=== PATIENT | female | born 1975 | race Caucasian/White ===

== ENCOUNTER 2017-01-26 20:43 | Emergency (ER) | payer BC, SELFPAY ==
[2017-01-26] MEDS ORDERED: HYDROcodone/Acetaminophen 10/325 mg Tablet ONE (21:13)
[2017-01-26] MEDS ORDERED: Naproxen 500 MG TAB ONE (21:13)
[2017-01-26] MEDS ORDERED: AMOXicillin 250 MG CAP ONE (21:13)
== END 2017-01-26 21:18 | disposition home or self-care (01) ==
LOC: MADERS 20:43
DX: K04.7 Periapical abscess without sinus (principal); J45.909 Unspecified asthma, uncomplicated; F17.210 Nicotine dependence, cigarettes, uncomplicated
CPT/HCPCS: 99282

== ENCOUNTER 2017-08-01 18:41 | Emergency (ER) | payer SELFPAY ==
[~2017-08-01 18:41] MED LIST: Sodium Chloride 0.9% 1,000 ML BAG ONE
[2017-08-01 19:14] LABS: Pregnancy Test - Urine (BHCG) Negative (Negative); Pregu Control Background? CLEAR/WHITE (CLR/WHITE); Pregu Control Bar Appear? YES (CONTROL BAR)
[2017-08-01 19:15] LABS: Bilirubin Small (Negative); Blood, Urine Negative (Negative); Clarity Hazy (Clear); Glucose, Urine (Dipstick) Negative (Negative); Leukocyte Small (Negative); Nitrite Negative (Negative); Protein, Urine (Dipstick) Trace mg/dL (Neg-Trace); Urobilinogen 0.2 mg/dL (0.2-1.0); pH, Urine 5.5 (5.0-9.0)
[2017-08-01 19:17] LABS: RBC/HPF 0-3 HPF (0-3)
[2017-08-01 19:18] LABS: Bacteria/HPF 1+ HPF (None Seen)
[2017-08-01] MEDS ORDERED: Ketorolac Tromethamine 30 MG/ML VIAL ONE (19:25)
[2017-08-01] MEDS ORDERED: Ondansetron HCl/PF 4 MG/2 ML Vial ONE (19:25)
[2017-08-01 19:45] LABS: #Basophils 0.1 thou/uL (0.0-0.2); #Eosinphils 0.2 thou/uL (0.0-0.7); #Lymphocytes 1.5 thou/uL (1.20-3.40); #Monocytes 0.7 thou/uL (0.11-0.59); #Neutrophils 7.9 thou/uL (1.40-6.50); %Eosinophils 1.7 % (0.0-10.0); %Monocytes 6.3 % (0.0-10.0); %Neutrophils 76.9 % (42.0-75.0); Hemoglobin 11.8 g/dL (12.0-16.0); Mean Corpuscular HGB CONC 31.5 g/dL (32.0-36.0); Mean Corpuscular Hemoglobin 26.3 pg (27.0-31.0); Mean Corpuscular Volume 83.5 fl (81.0-99.0); Mean Platelet Volume 9.9 fL (7.4-10.4); Platelet Count 230 thou/uL (130-400); RBC Distribution Width 15.3 % (11.5-14.5); Red Blood Cell (RBC) Count 4.49 mill/uL (4.20-5.40); White Blood Cell (WBC) Count 10.3 thou/uL (4.8-10.8)
[2017-08-01 20:15] LABS: ALT (SGPT) 13 U/L (8-55); AST (SGOT) 17 U/L (5-34); Albumin 3.9 g/dL (3.5-5.0); Alkaline Phosphatase 74 U/L (40-150); Anion Gap 11 mmol/L (10-20); BUN (Urea Nitrogen) 12 mg/dL (7.0-18.7); Bilirubin, Total Less than 0.3 mg/dL (0.2-1.2); Calc. Creatinine Clearance 0 mL/min (70-130); Calcium 8.8 mg/dL (7.8-10.44); Carbon Dioxide 28 mmol/L (22-29); Chloride 100 mmol/L (98-107); Estimated GFR-MDRD 79; Globulin 3.5 g/dL (2.4-3.5); Glucose 86 mg/dL (70-105); Potassium 4.2 mmol/L (3.5-5.1); Protein, Total 7.4 g/dL (6.0-8.3); Sodium 135 mmol/L (136-145)
[2017-08-01] MEDS ORDERED: Sulfameth/Trimethoprim DS 800-160mg TAB ONE (20:28)
[2017-08-01] MEDS ORDERED: Phenazopyridine HCl 97.5 MG TABLET ONE (20:28)
== END 2017-08-01 21:59 | disposition home or self-care (01) ==
LOC: MADERS 18:41
DX: N39.0 Urinary tract infection, site not specified (principal); J45.909 Unspecified asthma, uncomplicated; F17.210 Nicotine dependence, cigarettes, uncomplicated
CPT/HCPCS: 80053; 81001; 81025; 85025; 87040; 87086; 96361; 96374; 96375; 96376; J1885; J2270; J2405; J7050

== ENCOUNTER 2018-07-03 09:53 | Emergency (ER) | payer SELFPAY ==
[2018-07-03 10:50] LABS: Bilirubin Negative (Negative); Blood, Urine Large (Negative); Glucose, Urine (Dipstick) Negative (Negative); Leukocyte Small (Negative); Nitrite Negative (Negative); Protein, Urine (Dipstick) 100 mg/dL (Neg-Trace); Urobilinogen 0.2 mg/dL (0.2-1.0); pH, Urine 7.5 (5.0-9.0)
[2018-07-03 11:03] LABS: Clarity Hazy (Clear); RBC/HPF GREATER THAN 50-TNTC HPF (0-3)
[2018-07-03 11:04] LABS: Bacteria/HPF Rare-Few HPF (None Seen)
[2018-07-03 11:07] LABS: Pregnancy Test - Urine (BHCG) Negative (Negative); Pregu Control Background? CLEAR/WHITE (CLR/WHITE); Pregu Control Bar Appear? YES (CONTROL BAR)
[2018-07-03] MEDS ORDERED: cefTRIAXone\\ROCEPHIN 250 MG VIAL ONE (11:43)
[2018-07-03] MEDS ORDERED: metroNIDAZOLE 250 MG TAB ONE (11:43)
[2018-07-03] MEDS ORDERED: Lidocaine 1% 20 ML MDV ONE (11:43)
[2018-07-03] MEDS ORDERED: Azithromycin 250 MG TAB ONE (11:43)
[2018-07-03 11:48] LABS: Wet Prep Clue Cells Clue Cells Absent (None Seen); Wet Prep Pathologist Review Spermatozoa Absent (None Seen); Wet Prep Spermatozoa 2nd Revie Agree with result (None Seen); Wet Prep Trichomonas Trichomonas Absent (None Seen)
[2018-07-04 22:22] LABS: Chlamydia by PCR DETECTED (NotDetected); GC by PCR Not Detected (NotDetected)
== END 2018-07-03 12:00 | disposition home or self-care (01) ==
LOC: MADERS 09:53
DX: Z20.2 Contact with and (suspected) exposure to infections with a predominantly sexual mode of transmission (principal); J45.909 Unspecified asthma, uncomplicated; F17.210 Nicotine dependence, cigarettes, uncomplicated
CPT/HCPCS: 81003; 81015; 81025; 87210; 87480; 87491; 87510; 87591; 87660; 96372; J0696; J2001

== ENCOUNTER 2020-12-25 15:51 | Emergency (ER) | payer SELFPAY ==
[2020-12-25 16:21] LABS: Bilirubin Negative (Negative); Blood, Urine Negative (Negative); Clarity Cloudy (Clear); Glucose, Urine (Dipstick) Negative (Negative); Ketone, Urine 15 mg/dL (Negative); Leukocyte Large (Negative); Nitrite Negative (Negative); Protein, Urine (Dipstick) Negative (Neg-Trace); Specific Gravity, Urine 1.025 (1.005-1.030)
[2020-12-25 16:22] LABS: Pregnancy Test - Urine (BHCG) Negative (Negative); Pregu Control Background? CLEAR/WHITE (CLR/WHITE); Pregu Control Bar Appear? YES (CONTROL BAR); Specific Gravity 1.025 (1.002-1.036)
[2020-12-25 16:28] LABS: Bacteria/HPF Rare-Few HPF (None Seen); Mucous/LPF 1+ LPF (<2+); RBC/HPF 0-3 HPF (0-3); WBC/HPF Greater Than 50 HPF (0-3)
[2020-12-25] MEDS ORDERED: Sodium Chloride 0.9% 100 ML ONE (16:43)
[2020-12-25] MEDS ORDERED: Sodium Chloride 0.9% 1,000 ML ONE (16:43)
[2020-12-25] MEDS ORDERED: Prochlorperazine 10 MG/2 ML VIAL ONE (16:43)
[2020-12-25] MEDS ORDERED: cefTRIAXone\\ROCEPHIN 1 GM VIAL ONE (16:43)
[2020-12-25] MEDS ORDERED: Morphine 2 MG/ML VIAL ONE (17:26)
[2020-12-25] MEDS ORDERED: metroNIDAZOLE 500 MG/100 ML BAG ONE (17:35)
[2020-12-25 17:42] LABS: #Basophils 0.1 thou/uL (0.0-0.2); #Eosinphils 0.1 thou/uL (0.0-0.7); #Lymphocytes 1.1 thou/uL (1.20-3.40); #Monocytes 0.4 thou/uL (0.11-0.59); #Neutrophils 6.3 thou/uL (1.40-6.50); %Basophils 0.7 % (0.0-1.0); %Eosinophils 1.9 % (0.0-10.0); %Lymphocytes 13.6 % (21.0-51.0); %Monocytes 4.7 % (0.0-10.0); %Neutrophils 79.1 % (42.0-75.0); Hypochromia SLIGHT = 6-15 cells (100X) (0-5/hpf); MDiff Complete? YES; Mean Corpuscular HGB CONC 30.9 g/dL (32.0-36.0); Mean Corpuscular Hemoglobin 22.6 pg (27.0-31.0); Mean Corpuscular Volume 73.3 fL (78.0-98.0); Mean Platelet Volume 8.3 fL (7.4-10.4); Microcytosis SLIGHT = 6-15 cells (100X) (0-5/hpf); Platelet Count 307 thou/uL (130-400); Polychromasia SLIGHT = 2-3 cells (100X) (0-2/hpf); Red Blood Cell (RBC) Count 3.96 mill/uL (4.20-5.40)
[2020-12-25 17:46] LABS: ALT (SGPT) 91 U/L (8-55); AST (SGOT) 106 U/L (5-34); Albumin 3.7 g/dL (3.5-5.0); Alkaline Phosphatase 78 U/L (40-110); Anion Gap 13 mmol/L (10-20); BUN (Urea Nitrogen) 8 mg/dL (7.0-18.7); Bilirubin, Total 0.3 mg/dL (0.2-1.2); Calc. Creatinine Clearance 0 mL/min (70-130); Calcium 8.3 mg/dL (7.8-10.44); Carbon Dioxide 26 mmol/L (22-29); Chloride 103 mmol/L (98-107); Globulin 3.4 g/dL (2.4-3.5); Glucose 90 mg/dL (70-105); Protein, Total 7.1 g/dL (6.0-8.3); Sodium 138 mmol/L (136-145)
[2020-12-29 22:01] LABS: Chlamydia by PCR Inconclusive (NotDetected); GC by PCR Inconclusive (NotDetected)
== END 2020-12-25 17:05 | disposition short-term general hospital (02) ==
LOC: MADERS 15:51
DX: N72 Inflammatory disease of cervix uteri (principal); R11.2 Nausea with vomiting, unspecified; F17.210 Nicotine dependence, cigarettes, uncomplicated
CPT/HCPCS: 36415; 80053; 81003; 81015; 81025; 85025; 87480; 87491; 87510; 87591; 87660; 96374; 96375; J0696; J0780; J2270; J3490; J7050

== ENCOUNTER 2021-12-31 15:59 | Emergency (ER) | payer SELFPAY ==
[2021-12-31] MEDS ORDERED: Boostrix 0.5 ML (Tdap) VIAL ONE (16:20)
== END 2021-12-31 17:20 | disposition home or self-care (01) ==
LOC: MADERS 15:59
DX: S52.202A Unspecified fracture of shaft of left ulna, initial encounter for closed fracture (principal); J45.909 Unspecified asthma, uncomplicated; F17.210 Nicotine dependence, cigarettes, uncomplicated; Y04.0XXA Assault by unarmed brawl or fight, initial encounter
CPT/HCPCS: 90471; 90715

== ENCOUNTER 2022-05-20 16:08 | Emergency (ER) | payer SELFPAY ==
[2022-05-20 17:27] LABS: Bilirubin Negative (Negative); Blood, Urine Trace (Negative); Clarity Cloudy (Clear); Glucose, Urine (Dipstick) Negative (Negative); Ketone, Urine Trace mg/dL (Negative); Leukocyte Small (Negative); Nitrite Negative (Negative); Protein, Urine (Dipstick) Trace mg/dL (Neg-Trace); Specific Gravity, Urine 1.015 (1.005-1.030); Urobilinogen 0.2 mg/dL (Less than 2)
[2022-05-20 17:38] LABS: RBC/HPF 0-3 HPF (0-3)
[2022-05-20 17:39] LABS: Squamous Epithelial 0-3 HPF (0-3)
[2022-05-20 17:40] LABS: Bacteria/HPF 2+ HPF (None Seen); WBC/HPF 21-50 HPF (0-3)
[2022-05-20] MEDS ORDERED: Naproxen 500 MG TAB ONE (17:44)
[2022-05-20] MEDS ORDERED: Cyclobenzaprine 10 MG TAB ONE (17:44)
[2022-05-20] MEDS ORDERED: Cephalexin 500 MG CAP ONE (17:48)
== END 2022-05-20 17:51 | disposition home or self-care (01) ==
LOC: MADERS 16:08
DX: N39.0 Urinary tract infection, site not specified (principal); M54.50 Low back pain, unspecified; J45.909 Unspecified asthma, uncomplicated; F17.210 Nicotine dependence, cigarettes, uncomplicated
CPT/HCPCS: 81003; 81015; 99283

== ENCOUNTER 2023-07-28 12:28 | Emergency (ER) | payer SELFPAY ==
[2023-07-28 13:16] LABS: Pregnancy Test - Urine (BHCG) Negative (Negative); Pregu Control Background? CLEAR/WHITE (CLR/WHITE); Pregu Control Bar Appear? YES (CONTROL BAR); Specific Gravity 1.021 (1.002-1.036)
[2023-07-28] MEDS ORDERED: NEOMYCIN-POLYMYXIN-HC EAR SUSP 200 DROP/10 ML BOT ONE (13:34)
[2023-07-28] MEDS ORDERED: Prochlorperazine 10 MG/2 ML VIAL ONE (13:38)
[2023-07-28] MEDS ORDERED: Ketorolac Tromethamine 30 MG/ML VIAL ONE (13:38)
[2023-07-28] MEDS ORDERED: Amoxicillin/Potassium Clav 875 MG TAB ONE (13:38)
[2023-07-28] MEDS ORDERED: diphenhydrAMINE 50 MG/ML VIAL ONE (13:38)
== END 2023-07-28 14:18 | disposition home or self-care (01) ==
LOC: MADERS 12:28
DX: J06.9 Acute upper respiratory infection, unspecified (principal); K08.89 Other specified disorders of teeth and supporting structures; H60.92 Unspecified otitis externa, left ear; F17.290 Nicotine dependence, other tobacco product, uncomplicated
CPT/HCPCS: 81025; 94760; 96374; 96375; J0780; J1200; J1885